=== PATIENT | male | born 1975 | race Caucasian/White ===

== ENCOUNTER 2017-05-11 09:04 | Emergency (ER) | payer OTHER ==
[~2017-05-11] VITALS: Ht 167.6 cm; Wt 87.3 kg
[~2017-05-11 09:04] MED LIST: CIPRO500 MG PO; CLONAZEPAM0.5 MG PO; FLAGYL500 MG PO; NORCO 10/3251 TABLET PO; NORCO 5/3251 TABLET PO; NORCO 7.5/321 TABLET PO; ZOFRAN ODT4 MG PO
[2017-05-11 09:51] LABS: ADD MIUA? YES; BILIRUBIN NEGATIVE; BLOOD MODERATE; COLOR COLORLESS ((YELLOW)); GLUCOSE (STRIP) NEGATIVE; KETONES NEGATIVE; LEUKOCYTES NEGATIVE; NITRITE NEGATIVE; PROTEIN (STRIP) NEGATIVE; SPECIFIC GRAVITY 1.003 (1.000-1.030); UROBILINOGEN 0.2 MG/DL (0.2-1.0)
[2017-05-11 09:52] LABS: BACTERIA NONE SEEN /HPF; EPITHELIAL CELLS NONE SEEN /HPF; MUCUS NONE SEEN /LPF; RED BLOOD CELLS 0-5 /HPF (0-5); UCUL ADDED? NO; WHITE BLOOD CELLS 0-5 /HPF (0-5)
[2017-05-11 10:43] LABS: HEMATOCRIT 45.6 % (38.0-50.0); MCH 31.3 PG (29.0-34.0); MCHC 35.3 G/DL (30.0-36.0); MCV 88.7 FL (86-99); MEAN PLAT.VOLUME 11.1 uM^3 (9.0-12.4); PLATELET COUNT 168 K/uL (156-360); RBC DIS.WIDTH-CV 11.9 % (11.8-14.6); RED BLOOD COUNT 5.14 M/uL (4.00-5.50); WHITE BLOOD COUNT 6.2 K/uL (4.1-10.2)
[2017-05-11 10:55] LABS: CHLORIDE 105 mEq/L (99-109); POTASSIUM 3.8 mEq/L (3.7-5.4); SODIUM 141 mEq/L (136-147)
[2017-05-11 10:57] LABS: GLUCOSE 98 mg/dL (70-99)
[2017-05-11 10:58] LABS: ANION GAP 12 MEQ/L (2-14)
[2017-05-11 10:59] LABS: TOTAL BILIRUBIN 1.3 mg/dL (0.0-1.0)
[2017-05-11 11:00] LABS: ALKALINE PHOSPHATASE 98 IU/L (3-129)
[2017-05-11 11:01] LABS: GFR ESTIMATE (CALCULATED) > 59 mL/min/
[2017-05-11 11:02] LABS: UREA NITROGEN (BUN) 11 mg/dL (9-23)
[2017-05-11] MEDS ORDERED: NAPROSYN500 MG PO (13:06)
[2017-05-11] MEDS ORDERED: TRAMADOL HCL50 MG PO (13:06)
[2017-05-11] MEDS ORDERED: FLOMAX0.4 MG PO (13:06)
[2017-05-11 13:22] VITALS: BP 155/89
== END 2017-05-11 13:22 | disposition home or self-care (01) ==
LOC: EME 09:04
PROVIDERS: Nurse Practitioner Family
DX: N20.0 Calculus of kidney (principal); Z87.442 Personal history of urinary calculi; Z87.891 Personal history of nicotine dependence
CPT/HCPCS: 74020; 76770; 80048; 80053; 81003; 85027; 99281; 99284; J1885